=== PATIENT | male | born 1965 | race Caucasian/White ===

== ENCOUNTER → 2021-04-24 | Outpatient (REF) ==
--- NOTE | 2021-04-24 15:32 | Diagnostic Imaging Report ---
INDICATION: Right shoulder pain Three views of the right shoulder show no fracture, dislocation or other acute abnormalities. IMPRESSION: Negative right shoulder. Dictated by: Dictated on workstation # [id number]
== END ==
LOC: OCC 15:09
PROVIDERS: ATTEND Family Medicine
DX: M25.511 Pain in right shoulder (principal)
CPT/HCPCS: 73030

== ENCOUNTER → 2021-06-06 | Outpatient (REF) ==
--- NOTE | 2021-06-06 15:49 | Diagnostic Imaging Report ---
EXAMINATION: Magnetic resonance imaging of the right shoulder without contrast. DATE: June 06, 2021. COMPARISON: Right shoulder radiographs April 24, 2021. HISTORY: 56-year-old male, right shoulder pain. TECHNIQUE: Magnetic Resonance Imaging sequences were performed of the shoulder without contrast. FINDINGS: ROTATOR CUFF, LIGAMENTS, TENDONS, AND MUSCLES: There is supraspinatus and infraspinatus tendinopathy. There is a full thickness full width tear of the supraspinatus tendon with tendon retraction between the level of the superior humeral head and glenoid measuring approximately 4.0 cm. There is also a full thickness full width tear of infraspinatus with similar tendon retraction. The teres minor tendon is intact. There is subscapularis tendinopathy. There is minimal fatty atrophy involving the supraspinatus and infraspinatus muscles. LONG HEAD OF BICEPS: The proximal long head of biceps tendon is not well seen in its intra-articular segment although does appear to be intact within the bicipital groove. GLENOHUMERAL JOINT: The humeral head is mildly superiorly subluxed. The labrum is grossly intact. There is no identified paralabral cyst. The articular cartilage is grossly intact. There is no large glenohumeral joint effusion. ACROMIOCLAVICULAR JOINT: The acromioclavicular joint is normally aligned. The coracoclavicular and coracoacromial ligaments are intact. There are mild to moderate acromioclavicular degenerative changes without large undersurface osteophyte. BONE: There is no os acromiale. There is no Hill-Sachs deformity. There is no acute fracture, bone contusion, or evidence of osteonecrosis. BURSAE AND SOFT TISSUES: There is fluid in the subacromial subdeltoid bursa. IMPRESSION: 1. Full thickness full width tears of the supraspinatus and infraspinatus with tendon retraction between the level of the superior humeral head and glenoid. There is minimal fatty atrophy of both muscles. Subscapularis tendinopathy. 2. Mild to moderate acromioclavicular degenerative changes without large undersurface osteophyte. 3. The humeral head is superiorly subluxed. Grossly intact labrum and articular cartilage of the glenohumeral joint. 4. No acute fracture, bone contusion, or evidence of osteonecrosis. 5. Small amount of fluid in the subacromial subdeltoid bursa which may relate to the full-thickness rotator cuff tendon tears and/or bursitis. Dictated by: Dictated on workstation # [id number]
== END ==
LOC: OCC 14:01
PROVIDERS: ATTEND Family Medicine
DX: M25.511 Pain in right shoulder (principal)
CPT/HCPCS: 73221